=== PATIENT | female | born 1975 | race Caucasian/White ===

== ENCOUNTER 2016-12-27 18:38 | Inpatient (IN) | payer BC ==
--- NOTE | ~2016-12-27 | CN ---
Consultation Report [facility] [address] [place]. [address] NAME: ROXANNE ROE : 73 STATUS : ADM IN PAT#: [id number] AGE: 41 ADM/REG DATE : 12/27/16 MR#: [id number] REPORT SERV DATE: 01/08/17 DICTATED BY: BORIS PEREZ DATE: 01/08/17 REPORT STATUS : Draft TRANSCRIBED BY: MODL DATE: 01/08/17 PALLIATIVE CARE CONSULTATION DATE OF CONSULTATION: Initial consultation date spans 01/06 and 01/07. Initial consultation request was on 01/06 from GI. After discussing the case with Dr. Manley, we elected to defer the consultation until more definitive pathology was available. ALLERGIES: PENICILLIN, DIAZEPAM, TRAMADOL CAUSES PERIORAL NUMBNESS. HISTORY OF PRESENT ILLNESS: Roxanne is a rather complicated 41-year-old 1, para 1 female, who has longstanding issues, possibly as long as a year, involving her right upper quadrant area with nausea "vomiting of green foam," And several ER admissions with similar complaints, for which the workup has been unremarkable. On 12/22, because of increasing symptoms and changes on her chest x-ray, she was admitted to [facility] with a presumptive diagnosis of pneumonitis and right upper quadrant pain. Due to changes in her situation, she was subsequently transferred here, and CAT scan evidence was suggestive of right lung possible pathological process. She underwent fiberoptic bronchoscopy, etc. and subsequently on 01/04, underwent a right upper lobe VATS procedure. The preop diagnosis of right upper lobe ground-glass opacity with mediastinal lymphadenopathy was essentially confirmed. Technically, she did have some atypical cells in her bronchoscopy specimen, which is what resulted in the video procedure. 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 No tumors or granulomas were identified in the lymph nodes or other aspects of the specimen. The patient is markedly relieved, however; she has ongoing pain issues involving her right upper quadrant area. She has been seen by a variety of specialists. PAST MEDICAL HISTORY: Remarkable for a section approximately 24 years ago. She has migraine headaches and diagnosis according to her of juvenile rheumatoid arthritis. She reports that during her , her arthritis symptoms were markedly improved. She takes Fioricet and Imitrex for her migraines. PAST SURGICAL HISTORY: Includes a cholecystectomy roughly a year ago and the aforementioned . SOCIAL HISTORY: She is . Her mother, father, and a 24-year-old son evidently have relocated from [place] possibly, I believe, for financial reasons. She describes being "poor in [place], but middle class here." She is a xjm-lzwm-d-day smoker for at least the last 15-20 years. She had a two-year period of abstinence, but then resumed it during stress. No significant alcohol use. No illicit medications. 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 She is contemplating another . Consultation Report [place] [id number] [facility] [place]. [address] NAME: ROXANNE ROE : 73 STATUS : ADM IN [facility]#: [id number] AGE: 41 ADM/REG DATE : 12/27/16 MR#: [id number] REPORT SERV DATE: 01/08/17 DICTATED BY: BORIS PEREZ DATE: 01/08/17 REPORT STATUS : Draft TRANSCRIBED BY: MIRTHA DATE: 01/08/17 FAMILY HISTORY: Includes DVT and stroke. The mother evidently was diagnosed with celiac disease. On detailed review, the patient tells me that the pain is sometimes positional. She says that when the epidural catheter after her procedure was removed the night following that, she had an excruciating series of pain episodes involving the right side of her body. She was really unable to localize the pain at that time. She says her pain when she is comfortable is normally a 7 and on most days, things are really good at 4/10. She does have chronic pain complaints as documented through her arthritis history. The pain itself has a sticking, burning characteristic to it, although there is certainly an aching component as well. Limited examination shows a nondermatomal area of hyperesthesia in the right lower chest area anterior to the midaxillary line. There is also some tenderness in the right upper quadrant on palpation. There are no obvious peritoneal signs. She has had pleuritic pain components to this, but this appears to be fading. Her current vital signs are physiologic. She is afebrile and nontoxic. DISCUSSION: An extensive discussion was held with the patient regarding her current situation. My initial attempts to explain to her the concept of hyperesthesia and excessive nerve sensitivity unfortunately resulted in her taking the message she was receiving as being dismissed and told that she basically "had pain in her head." I actually returned to the room at the request of the family and re-conducted the conversation, clarifying my impression that this may be some form of neuropathic pain, possibly a combination of her chronic inflammatory condition from her immune status as well as the instrumentations and physical stimuli of both gallbladder surgery previously as well as now thoracic surgery. We are going to be giving her an accelerating dose of Neurontin up to 800 mg t.i.d. If this is not successful, other alternatives may have to be explored. The patient did volunteer and tell me that a number of years ago for reasons unclear, she was on Lyrica which was not terribly effective. I am hopeful since this is a new problem and clearly has a neuritic component that gabapentin will be effective in helping her deal with this. Thank you for asking me to see this patient. BHARGAV/MIRTHA Boris Perez M.D. Consultation Report [address] [address] NAME: ROXANNE ROE : 73 STATUS : ADM IN PAT#: [id number] AGE: 41 ADM/REG DATE : 12/27/16 MR#: [id number] REPORT SERV DATE: 01/08/17 DICTATED BY: BORIS PEREZ DATE: 01/08/17 REPORT STATUS : Draft TRANSCRIBED BY: MIRTHA DATE: 01/08/17 / [id number] CC: Shira Spencer Katrina V.
--- NOTE | ~2016-12-27 | CN ---
Consultation Report [facility] [address] [place]. [address] NAME: MILY ROE : 73 STATUS : ADM IN PAT#: [id number] AGE: 41 ADM/REG DATE : 12/27/16 MR#: [id number] REPORT SERV DATE: 01/04/17 DICTATED BY: RALPH PERRY JR. DATE: 01/03/17 REPORT STATUS : Draft TRANSCRIBED BY: MODL DATE: 01/03/17 CONSULTATION DATE OF CONSULTATION: 01/03/2017 REASON FOR CONSULTATION: Evaluation for lung biopsy and mediastinal node sampling. BRIEF HISTORY: This is a 41-year-old female who initially presented to [facility] complaining of severe right upper quadrant abdominal pain associated with nausea, some vomiting, and occasional fevers and chills. She has been having similar complaints with presentations to the emergency rooms around [facility] including outpatient imaging through [facility] her abdomen and pelvis which have been negative. She has had a previous cholecystectomy. There is some focal hepatic steatosis in the left hepatic lobe. Between October and December of this year, there were some new changes in her lung parenchyma, more specifically a ground-glass infiltrate in the right upper lobe more than the left upper lobe. There was some basal atelectasis. There was also over the 2-month time period, an enlargement in an 11R and the #7 lymph node in the mediastinum. She underwent endobronchial ultrasound as well as bronchoscopy with transbronchial biopsy and lavage demonstrating some atypical cells, we could not rule out carcinoma in situ or well-differentiated adenocarcinoma. Because of this, the patient is convinced she certainly has lung cancer. Mainly her concerns are based on her 30-pack year smoking history and at least two packs per day for 15 years and her family history of lung cancer at premature age. The patient is mainly still complaining of abdominal pain, we just keep her in the hospital requiring her IV narcotics. PAST MEDICAL HISTORY: Significant for migraine headaches, COPD with persistent tobacco abuse. PAST SURGICAL HISTORY: Previous cholecystectomy and . MEDICATIONS: Medication list includes Fioricet, Bentyl, ibuprofen, Aspercreme, Preston, Prilosec, Phenergan, and Flagyl. ALLERGIES: PENICILLIN, VALIUM, AND TRAMADOL. SOCIAL HISTORY: The patient says she smoked two packs per day for 15 years on average. It likely could be longer and it was sometimes between one to two packs during that time. She works at a nursery. FAMILY HISTORY: Significant for DVT and stroke, mom with celiac disease. She said there is lung cancer on one side of her family and ovarian cancer on the other side. REVIEW OF SYSTEMS: Significant with the above-mentioned problems in the history of present illness. All other Consultation Report [place] [address] [place]. [address] NAME: MILY ROE : 73 STATUS : ADM IN PAT#: [id number] AGE: 41 ADM/REG DATE : 12/27/16 MR#: [id number] REPORT SERV DATE: 01/04/17 DICTATED BY: RALPH PERRY JR. DATE: 01/03/17 REPORT STATUS : Draft TRANSCRIBED BY: MIRTHA DATE: 01/03/17 systems are negative. PHYSICAL EXAMINATION: GENERAL: This is a 41-year-old female, sitting up in bed, in no apparent distress. HEAD EYES EARS, NOSE, and THROAT: Negative. Sclera was nonicteric. Pupils round, equal, and reactive to light. NECK: Supple. No lymphadenopathy. CARDIOVASCULAR: Revealed no murmurs or rubs. LUNGS: No rhonchi with good breath sounds bilaterally. ABDOMEN: Soft, nontender with some right upper quadrant tenderness to palpation but no guarding. EXTREMITIES: Showed no significant edema. NEUROLOGIC: Grossly intact. SKIN: Warm and dry. PSYCHIATRIC: Negative. IMPRESSION: This is a 41-year-old female with too much changes in her CT scan, particularly most notable in the right upper lobe. There was also some two regions of mediastinal lymphadenopathy that increased. These were more suggestive of inflammatory rather than malignant changes. Given her certainty in her families that she has lung cancer and that is attributing to her abdominal pain, she wishes to proceed on with further biopsies to definitively rule this out. I did discuss with her in great detail that these are nonpalpable lesions. We could do a sampling of the right upper lobe in the anatomic region where the abnormalities are located. We can more certainly sample this specific lymph nodes in question. This would give us more evidence to likely rule in or out of malignancy. There was no way to absolutely biopsy area of concern within the lung tissue. It was also very clear that this is unlikely related to her abdominal pathology, and I would not expect it to resolve her abdominal pain. She was also well aware if we went on with lung biopsy that it was important to maintain smoking cessation after she returned home. Also important to use abundant caution postoperatively in risk for pneumonia as well as deep venous thrombosis. Preventive measures were explained in great detail with the patient. She is still very insisting of proceeding on with surgery. Given her concerns and only gets completely unrealistic as well as the pathology report was leaving some question that this could be malignant findings in her chest and they wish to proceed as soon as possible. We will try to use tomorrow the right thoracoscopy with right upper lobe biopsy as indicated in the mediastinal node dissection. We will request an epidural catheter for perioperative pain control. AIDA/MIRTHA Ralph Perry Jr., M.D. Consultation Report [address] [address] NAME: MILY ROE : 73 STATUS : ADM IN PAT#: [id number] AGE: 41 ADM/REG DATE : 12/27/16 MR#: [id number] REPORT SERV DATE: 01/04/17 DICTATED BY: RALPH PERRY JR. DATE: 01/03/17 REPORT STATUS : Draft TRANSCRIBED BY: MIRTHA DATE: 01/03/17 / [id number] CC: Shira Cortez KATRINA V.
--- NOTE | ~2016-12-27 | CN ---
Consultation Report [facility] [address] [place]. [address] NAME: MILY ROE : 73 STATUS : ADM IN PAT#: [id number] AGE: 41 ADM/REG DATE : 12/27/16 MR#: [id number] REPORT SERV DATE: 01/07/17 DICTATED BY: ALEX BARKLEY DATE: 01/07/17 REPORT STATUS : Draft TRANSCRIBED BY: MODL DATE: 01/07/17 HOSPITAL CONSULTATION DATE OF CONSULTATION: 01/07/2017 REASON FOR CONSULTATION: Enlarging ovarian cyst with right upper quadrant pain. HISTORY: This is a 41-year-old white female, 1, para 1, admitted approximately three weeks ago for right upper quadrant pain with a diagnosis of desquamative interstitial pneumonia by lung biopsy and bronchoscopy. She was recovering from this when the right upper quadrant pain which had been present prior to diagnosis and procedure became severe. A CT scan was obtained which showed an ovarian cyst which increased to 3 cm. Her menstrual history is significant for irregular cycles with periods that can occur every 2-3 months to three times a month. She has etoxejpu-rr-lerfze dysmenorrhea with heavier periods. She desires . Her last period was 01/03/2017 and the one prior to that was 12/20/2016. Her pain is in the right upper quadrant and increases with movement and deep breathing. It has been severe to the point of not being able to get relief from pain medicines. Pain medicines seem to decrease her pain, but did not resolve the cause of the pain. She is apparently doing well from the chest tube and bronchoscopy and lung biopsy on the right without increased fluid or inflammatory process. She is also on steroids for the interstitial pneumonia and normally, her bowel function is daily but she has not had a bowel movement since her procedure which was three days ago. PAST SURGICAL HISTORY: Four arthroscopy of the knee; rotator cuff, left; laparoscopy 15 years ago at [place] for endometriosis, pelvic pain which she states was improved. No history of control. She has either juvenile rheumatoid arthritis or arthritis for which she has taken several medications in the past, but is not currently being treated. She had an episode of kidney stones as a teenager. She also had an emergency 24 years ago for breech. SOCIAL HISTORY: She smokes approximately a pack a day. ALLERGIES: SHE IS ALLERGIC TO PENICILLIN, TRAMADOL, AND VALIUM. MEDICATIONS: Her admission sheet list multiple medications, however, she states to me she only takes Motrin. IMPRESSION: 1. Right upper quadrant pain before, but becoming severe following right lung biopsy; history of right upper quadrant pain since cholecystectomy a year ago. 2. Ovarian cyst, approximately 3-4 cm size within normal limits. She has a history of anovulatory cycles for which she has received some metformin in the past, but that was discontinued. A [employer] source of her right upper quadrant pain is unlikely. She does however need assistance with regulating menstrual cycles, dysmenorrhea, and pelvic pain Consultation Report [facility] [address] [place]. [address] NAME: MILY ROE : 73 STATUS : ADM IN [facility]#: [id number] AGE: 41 ADM/REG DATE : 12/27/16 MR#: [id number] REPORT SERV DATE: 01/07/17 DICTATED BY: ALEX BARKLEY DATE: 01/07/17 REPORT STATUS : Draft TRANSCRIBED BY: MIRTHA DATE: 01/07/17 and for this, she was instructed to follow up in the office after discharge. I have also given her a prescription for progesterone 200 mg at bedtime for four days, 15 through 28 of each cycle; folic acid 1 mg a day as long as she is not preventing ; and naproxen 550 mg q.8 hours p.r.n. dysmenorrhea. RONAK/MIRTHA Alex Barkley M.D. / [id number] CC: Shira Spencer Katrina V.
--- NOTE | ~2016-12-27 | EGD ---
EGD REPORT [facility] [address] [id number] NAME: ROXANNE ROE : 73 STATUS : ADM IN PAT#: [id number] AGE: 41 ADM/REG DATE : 12/27/16 MR#: [id number] REPORT SERV DATE: 12/28/16 DICTATED BY: IVETTE CHI DATE: 12/28/16 REPORT STATUS : Draft TRANSCRIBED BY: IATARH [facility] DATE: 12/28/16 Pulmonology Patient Name: Roxanne Roe Gutwanda Procedure Date: 12/28/2016 9:36 AM Date of : 1975 Attending MD: TONY CHI MD Procedure Date No Time: 12/28/2016 Procedure: EBUS Indications: RUL infiltrate (GGO) and mediastinal adenopathy Providers: TONY CHI MD Referring MD: ROME KENT MD Medicines: Lidocaine 2% 20 mL Complications: No immediate complications Procedure: Pre-Anesthesia Assessment: - A History and Physical has been performed. Patient meds and allergies have been reviewed. The risks and benefits of the procedure and the sedation options and risks were discussed with the patient. All questions were answered and informed consent was obtained. Patient identification and proposed procedure were verified prior to the procedure by the physician and the nurse in the pre-procedure area in the procedure room. Mental Status Examination: alert and oriented. Respiratory Examination: poor air movement. CV Examination: normal and RRR, no murmurs, no S3 or S4. ASA Grade Assessment: III - A patient with severe systemic disease. After reviewing the risks and benefits, the patient was deemed in satisfactory condition to undergo the procedure. The anesthesia plan was to use general anesthesia. Immediately prior to administration of medications, the patient was re-assessed for adequacy to receive sedatives. The heart rate, respiratory rate, oxygen saturations, blood pressure, adequacy of pulmonary ventilation, and response to care were monitored throughout the procedure. The physical status of the patient was re-assessed after the procedure. the Bronchoscope was introduced through the mouth, via the endotracheal tube (the patient was intubated for the procedure) and advanced to the tracheobronchial tree. the BF [id number] was introduced through the mouth, via the endotracheal tube (the patient was intubated for the procedure) and advanced to the tracheobronchial tree. The procedure was accomplished without difficulty. The patient tolerated the procedure well. Findings: EGD REPORT [address] [address] NAME: ROXANNE ROE : 73 STATUS : ADM IN [facility]#: [id number] AGE: 41 ADM/REG DATE : 12/27/16 MR#: [id number] REPORT SERV DATE: 12/28/16 DICTATED BY: IVETTE CHI DATE: 12/28/16 REPORT STATUS : Draft TRANSCRIBED BY: [employer] DATE: 12/28/16 The endotracheal tube is in good position. The visualized portion of the trachea is of normal caliber. The andreina is sharp. The tracheobronchial tree was examined to at least the first subsegmental level. Bronchial mucosa and anatomy are normal; there are no endobronchial lesions, and no secretions. EBUS TBNA of lymph node level 11L x 4 passes for cytology EBUS TBNA of lymph node level 7 x 4 passes for cytology EBUS TBNA of lymph node level 11R x 4 passes for cytology Bronchoalveolar lavage was performed in the right upper lobe of the lung and sent for cell count, cytology, bacterial culture, viral smears \T\ culture, and fungal and AFB analysis. 120 mL of fluid were instilled. The return was cellular. There were no mucoid plugs in the return fluid Fluoroscopically guided transbronchial brushings were obtained in the right upper lobe of the lung and sent for routine cytology. One sample was obtained. Transbronchial biopsies were performed in the right upper lobe of the lung using forceps and sent for histopathology examination. The procedure was guided by fluoroscopy. Four biopsy passes were performed. Three biopsy samples were obtained. Impression: Rapid On-Site Evaluation (YAMILETH): Preliminary cytology is suggestive of a benign lesion (final results are pending). Recommendation: - Chest X-ray post-procedure. - Patient is planned to follow up at [facility]. - Follow up with Dr. Rome Kent at [facility]. Attending Participation: I personally performed the entire procedure. TONY CHI MD 12/28/2016 10:24 AM This report has been signed electronically. Number of Addenda: 0 Note Initiated On: 12/28/2016 9:36 AM [address] [id number]
--- NOTE | ~2016-12-27 | IDS ---
Interim Discharge Summary [facility] [address] [place]. [address] NAME: MILY ROE : 73 STATUS : ADM IN PAT#: [id number] AGE: 41 ADM/REG DATE : 12/27/16 MR#: [id number] REPORT SERV DATE: 01/04/17 DICTATED BY: DATE: REPORT STATUS : Draft TRANSCRIBED BY: MODL DATE: 01/04/17 ADMISSION DATE: 12/27/2016 DISCHARGE DATE: The patient was admitted to the [facility]. The patient was actually transferred from [facility] where she was admitted on 12/22/2016. [facility] Prior hospitalist was Dr. Fede Madrid. DIAGNOSES: 1. Right upper quadrant pain, reason for admission. 2. Nausea, vomiting, and diarrhea, resolved. 3. Bilateral pneumonia, status post seven days of Levaquin. 4. Clinically, chronic obstructive pulmonary disease - with acute exacerbation this admission, due to bilateral pneumonia, resolved. Now on maintenance inhalers. 5. Hypoxemic respiratory failure, due to pneumonia and chronic obstructive pulmonary disease exacerbation, resolved. Presently on room air. 6. Abnormal CT of the chest, with mediastinal lymphadenopathy, status post EBUS and bronch on 12/28/2016, with atypical cells on pathology, for lung biopsy by Dr. Perry today. 7. Vaginal candidiasis. 8. Rheumatoid arthritis. 9. History of tobacco abuse - two-packs per day for 15 years. Intends to stop smoking. 10.History of migraines. 11.Situational anxiety. 12.Steroid induced insomnia, improved. IMAGING AND DIAGNOSTICS: Includes imaging from the ER visits preceding admission to [place]: 1. Acute abdominal series on 12/19/2016, showed no acute cardiopulmonary disease. No evidence of obstruction, pneumoperitoneum, or abnormal abdominal calcification, status post cholecystectomy. 2. Portable chest x-ray on 12/22/2016, for fever shows no acute cardiopulmonary process, low lung volumes, status post cholecystectomy. 3. CT of the abdomen and pelvis with contrast on 12/22/2016, no acute abdominal or pelvic pathology. No imaging explanation for right upper quadrant pain, status post cholecystectomy. Minor subsegmental atelectasis in both posterior lung bases. Small indeterminate 5 mm noncalcified pulmonary nodules in the left lower lobe, benign appearance, recommend followup low-dose contrast CT in one year. 4. Chest CT with contrast on 12/24/2016, for fevers and cough shows small cluster of nodular infiltrates at the right lung apex, appear new from recent prior motion degraded CT of the chest dated 11/21/2016. May represent early bronchiolitis or bronchopneumonia. Small patchy areas of peripheral interstitial infiltrates bilaterally in the anterior upper lobes and along the inferior right upper lobe at the level of the minor fissure. Appear new from CT of the chest 11/21/2016. Upper lobe distribution of peripheral interstitial infiltrates raises possibility of early hypersensitivity pneumonitis. Right hilar and subcarinal adenopathy may represent Interim Discharge Summary [address] [place]. [address] NAME: MILY ROE : 73 STATUS : ADM IN [facility]#: [id number] AGE: 41 ADM/REG DATE : 12/27/16 MR#: [id number] REPORT SERV DATE: 01/04/17 DICTATED BY: DATE: REPORT STATUS : Draft TRANSCRIBED BY: MODL DATE: 01/04/17 reactive adenopathy. Although, needs close followup to ensure resolution after treatment of suspected underlying infectious disease process. Small indeterminate pulmonary nodules of the right upper lobe and both lower lobes, largest measuring 3 mm. Benign pattern. Recommendation for one year followup low-dose noncontrast CT. Report was reviewed with Dr. Stanton, who verbally stated that there was no evidence of pulmonary embolism either. 5. Portable chest x-ray on 12/28/2016, for shortness of breath shows interval development of diffuse symmetrical perihilar infiltrates consistent with interstitial edema. 6. Portable chest x-ray on 12/28/2016, shows no pneumothorax. Infiltrates worse consistent with recent bronchoscopy. 7. Hepatic echo on 12/29/2016, for right upper quadrant abdominal pain, shows negative hepatic ultrasound, status post cholecystectomy. No biliary dilatation. 8. EBUS on 12/28/[address] Kike Ndiaye, showing rare atypical cells, nondiagnostic, from several lymph nodes. Brushings for cytology of the right upper lobe of the lungs show atypical cells, suspicious for disordered architecture and enlarged nuclei. BAL for cytology from the right upper lobe shows rare atypical cells. All samples were nondiagnostic, but there was concern based on right upper lobe brushings in part D for low-grade/lepidic type adenocarcinoma. That said, there are overlapping reactive inflammatory changes and pathology was unable to render the diagnosis with certainty. 9. EGD on 12/23/[address] Horne showing erosive gastritis. Flattened mucosa in the duodenum. Subsequent pathology negative for celiac disease. PERTINENT LABORATORY DATA: White blood cell count has been normal through the hospitalization at [place]. Hemoglobin values have ranged from 10 to 12. INR is 1.2. Electrolytes have been normal with the exception of occasionally low potassium, and occasional mild elevations in glucose when she was on steroids. AFB culture was negative. Urinalysis was normal. BNP was 200. Multiple sets of liver enzymes, normal. Lipase 168. Bronchoscopy culture showed no growth of bacteria. Review of labs from [facility]; pH was 7.46, pCO2 32, PO2 40, oxygen saturation 81% on room air. C-reactive protein 79.1, lactate 1.2. Urine HCG negative. JERALD positive at 1 to 80 homogeneous pattern. Sedimentation rate 27. Flu swab negative. H pylori antibody negative. BRIEF HISTORY: For full details please see the history of present illness dictated by Malu Perez on 12/23/2016. This is a 41-year-old, white female, who was experiencing right upper quadrant pain for several weeks prior to admission, and had several ER presentations for right upper quadrant pain, and also been seen her primary care provider for outpatient work up. Also, during the October and November timeframe, had been diagnosed with pneumonia, and treated with Levaquin. When she came to the Emergency Department on 12/22/2016, she was admitted to the Hospitalist Service with right upper quadrant pain, temperature of 101.8, tachycardia, hypoxemia with blood gas showing oxygen saturations of 81% on room air. Procalcitonin was negative. Lactate was normal, flu swab was negative. CBC and comprehensive metabolic panel were normal. CT of the abdomen and pelvis, and chest x-ray were normal. The patient was admitted for recurrent right upper quadrant abdominal pain with nausea, vomiting, and diarrhea. Interim Discharge Summary [address] [address] NAME: MILY ROE : 73 STATUS : ADM IN [facility]#: [id number] AGE: 41 ADM/REG DATE : 12/27/16 MR#: [id number] REPORT SERV DATE: 01/04/17 DICTATED BY: DATE: REPORT STATUS : Draft TRANSCRIBED BY: MODL DATE: 01/04/[address] scans and most recent CT scan were nonrevealing for an etiology for her right upper quadrant pain, and because she was taking nonsteroidal anti-inflammatories on a regular basis, Gastroenterology consultation was obtained, and the patient underwent an EGD on 12/23/2016, demonstrating only nonspecific gastritis. The patient was placed on Protonix. She did not have any additional nausea, vomiting, or diarrhea in the hospital and therefore stool studies could not be obtained. Dr. Rome Kent, also saw the patient, while she was at [facility] for concern of pneumonitis on subsequent chest x-rays during the hospitalization. At that point, the patient was empirically on Levaquin and Flagyl, supplemental oxygen, and a CT of the chest with contrast demonstrated a small cluster of nodular infiltrates at the right lung apex, a small patchy area of peripheral interstitial infiltrates in bilateral anterior upper lobes, new compared to a previous chest CT from 11/21/2016. Also, right hilar and subcarinal adenopathy was noted with indeterminate small pulmonary nodules in the right upper lobe and both lower lobes. Recommendation was to obtain flexible bronchoscopy with endobronchial ultrasound by Dr. Ndiaye, and the patient was transferred to the [facility] on Wednesday the 12/27/2016. The patient underwent EBUS and bronchoscopy on 12/28/2016. I assumed care of the patient on 12/29/2016, and she was experiencing excruciating right upper quadrant pain. She had been transferred from [place] on a VOCATIONAL HORTICULTURE INSTRUCTOR which had been discontinued on the day prior, because no cause for this severe right upper quadrant pain had been determined. The VOCATIONAL HORTICULTURE INSTRUCTOR had to be re- initiated by the limnology teacher on 12/28/2016 over night. During the initial days of the week that I cared for the patient, we managed her bilateral pneumonia with Levaquin, IV Solu- Medrol, nebulized steroids, and nebulized bronchodilators. The patient has completed seven days of Levaquin as of today and this medication has been discontinued. She has also been tapered off her IV Solu-Medrol, and is on maintenance inhalers by Pulmonology. They clinically suspect COPD given the history of smoking, and more formal diagnosis can be made as an outpatient. The patient was able to be weaned off her oxygen to maintain oxygen saturations between 93% and 96% on room air, with exertion. The patient's right upper quadrant pain has remained an issue this week. I was able to wean her off her VOCATIONAL HORTICULTURE INSTRUCTOR on Wednesday01/01/2017, to a regimen of scheduled Percocet and IV Dilaudid which she is using every three to four hours. The cause of her right upper quadrant pain remains unknown. We were working towards discharge with reasonable pain control, to follow up at a [facility] regarding possible sphincter of Oddi dysfunction, or to follow up with DEVELOPING MACHINE TENDER for consideration of exploratory laparoscopy. However, on Wednesday01/01/2017, the patient's pathology from the EBUS was resulted demonstrating atypical cells in both lymph nodes and brushings from the right upper lobe. Pathology was unable to definitively rule out malignancy. Dr. Ndiaye showed the pathology results with the patient on 01/01/2017, and family requested that she remain inpatient to be evaluated by Cardiothoracic Surgery. Dr. Perry saw the patient on 01/03/2017, with plans for VATS with lung biopsies, possible lymph node biopsies, and postoperative epidural for pain control. That procedure is happening this afternoon, and the patient will be transferred to [address] [place] [address] Afterward, to complete her recovery, and Interim Discharge Summary [address] [address] NAME: MILY ROE : 73 STATUS : ADM IN [facility]#: [id number] AGE: 41 ADM/REG DATE : 12/27/16 MR#: [id number] REPORT SERV DATE: 01/04/17 DICTATED BY: DATE: REPORT STATUS : Draft TRANSCRIBED BY: MODL DATE: 01/04/17 for review of pathology from the VATS. DISPOSITION: The patient remains hospitalized to be followed by a colleague starting on 01/05/2017. Disposition will be per results of pathology. If pathology is negative, would again recommend pain management, outpatient evaluations by GI and DEVELOPING MACHINE TENDER for elusive source of right upper quadrant pain. At this point, she has been treated sufficiently for pneumonia and acute exacerbation of COPD. JASWINDER/MIRTHA Ramesh Baez M.D. / [id number] CC: Shira Cortez KATRINA V.
--- NOTE | ~2016-12-27 | DS ---
Discharge Summary [place] [address] [facility] [place]. [address] NAME: MILY ROE : 73 STATUS : DIS IN PAT#: [id number] AGE: 41 ADM/REG DATE : 12/27/16 MR#: [id number] REPORT SERV DATE: 01/09/17 DICTATED BY: JULIANA FRANKLIN DATE: 01/09/17 REPORT STATUS : Draft TRANSCRIBED BY: MIRTHA DATE: 01/09/17 ADMISSION DATE: 12/27/2016 DISCHARGE DATE: 01/09/2017 DIAGNOSES: 1. Desquamative interstitial pneumonia. 2. Right upper quadrant pain. 3. Systemic inflammatory response syndrome, resolved. 4. Gastritis. 5. Acute hypoxemic respiratory failure, resolved. 6. History of tobacco abuse. FOLLOWUP: the patient should follow up with her primary care physician Dr. Julia Gilliland in one to two weeks, and at that time the patient should be referred for an outpatient DEXA scan. Also, the patient should follow up with Dr. Tj Lopez tapper hand in three weeks for DIP. Also, the patient should follow up with web application tester Dr. Dallas Crowe, in two to three weeks for right ovarian cyst. DISCHARGE MEDICATIONS: Ascorbic acid 500 mg p.o. daily, Questran 4 mg p.o. at bedtime, Colace 100 mg p.o. b.i.d., Neurontin 600 mg p.o. t.i.d., Prilosec 20 mg p.o. b.i.d., Bactrim DS one tab p.o. daily Wednesday, Wednesday, and Wednesday for [address] Lopez, prednisone taper, Fioricet p.r.n., Bentyl 10 mg p.o. t.i.d. p.r.n., ibuprofen 400 to 600 mg p.o. q.6 hours p.r.n., promethazine 25 mg p.o. q.4 hours p.r.n., Percocet 5/325 one to two tabs p.o. q.4 to 6 hours p.r.n. written per the cardiothoracic surgeons, albuterol HFA two puffs inhaled q.4 hours p.r.n., Incruse Ellipta one puff inhaled daily, melatonin 6 mg p.o. at bedtime p.r.n., folic acid 1 mg p.o. daily, progesterone at bedtime per web application tester. CONSULTANTS: 1. Pulmonary, Dr. Tj Lopez. 2. GI, Dr. Horne and Dr. Stahl. 3. Cardiothoracic Surgery, Dr. Perry. 4. Gynecology, Dr. Dallas Crowe. 5. Palliative care for pain management, Dr. Christian Perez. PROCEDURES: Right thoracoscopy, with right upper lobe wedge excision, and mediastinal node sampling, and intercostal nerve block by Dr. Perry on 01/04/2017. HOSPITALISTS: 1. Cris Perez M.D. 2. Dr. Juliana Baez. 3. Dr. Franklin. HOSPITAL COURSE: This is a 41-year-old female, with a past medical history of chronic pain management, migraine headaches, presented to [facility] with right upper quadrant pain. According to the patient, she had an outpatient workup for her symptoms, and recently had a CT of the abdomen and pelvis as an outpatient with contrast that was overall Discharge Summary [address] [address] NAME: MILY ROE : 73 STATUS : DIS IN PAT#: [id number] AGE: 41 ADM/REG DATE : 12/27/16 MR#: [id number] REPORT SERV DATE: 01/09/17 DICTATED BY: JULIANA FRANKLIN DATE: 01/09/17 REPORT STATUS : Draft TRANSCRIBED BY: MODAlejandro DATE: 01/09/17 negative. There was no signs of appendicitis or any acute findings. Therefore, she presented to [facility] ER for ongoing symptoms. The patient was admitted to the Hospitalist Service with a GI consultation, initially seen by Dr. Harpreet Horne, and also seen by Pulmonary for signs of pneumonia versus pneumonitis. The patient was transferred to [facility] from [place] to be seen by cardiothoracic surgeons for interstitial infiltrates and nodular infiltrate. The patient had a flex bronchoscopy by Dr. Ndiaye prior to transfer that was nondiagnostic. Therefore, the patient was referred to Cardiothoracic Surgery. She was also seen by GI and had an EGD with findings of erosive gastropathy. The patient continued to have severe right upper quadrant pain of unknown etiology. She was continued on PPI, started on Questran by GI. She had multiple abdominal scans that were nondiagnostic, ruled out appendicitis. The patient did require per recommendation a right thoracoscopy with a right upper lobe wedge excision for suspected and possible underlying malignancy, due to the patient's a nodular infiltrates, with known ongoing tobacco abuse. The patient was educated on tobacco abuse cessation. She was continued on antibiotics, her infiltrates resolved, and eventually, her path report had findings of DIP Desquamative and interstitial pneumonia, and no signs of malignancy. The patient was educated on importance of tobacco abuse cessation. She was continued on Bactrim by tapper hand, Dr. Lopez. As for the patient's right upper quadrant pain, she required quite a bit of pain medications for control, and the patient was initiated on a steroid by Dr. Lopez for her DIP, and the patient's also right upper quadrant pain improved with the steroid management, most likely the right upper quadrant pain was secondary to musculoskeletal. Also, the patient was seen by web application tester for an acutely enlarged right ovarian cyst with signs of debris versus hemorrhage. The patient was ruled out for hemorrhagic ovarian cyst, however, was recommended to follow up with gynecology as an outpatient and prescriptions were written by the web application tester for the patient to follow up. At the time of discharge, the patient was much improved,but we will continue management with pain medicines. The patient and also educated on importance of safety of pain medicines and to have to manage pain medicines at home. The patient was feeling better and encouraged, and ready to be discharged to home, and to follow up with specialists as an outpatient. Please refer to interim summary from Dr. Ramesh Baez for further details, and the summary of H and P from Dr. Perez. This discharge required greater than 35 minutes. KELLIE/MODL Juliana Franklin M.D. / [id number] CC: Shira Spencer KATRINA V. Nathan Mull IV, M.D.
--- NOTE | ~2016-12-27 | OP ---
Record Of Operation [facility] [address] [place]. [address] NAME: MILY ROE : 73 STATUS : ADM IN PAT#: [id number] AGE: 41 ADM/REG DATE : 12/27/16 MR#: [id number] REPORT SERV DATE: 01/04/17 DICTATED BY: RALPH PERRY JR. DATE: 01/04/17 REPORT STATUS : Draft TRANSCRIBED BY: MODL DATE: 01/04/17 DATE OF PROCEDURE: 01/04/2017 PREOPERATIVE DIAGNOSES: Right upper lobe ground-glass opacity with mediastinal lymphadenopathy, rule out malignancy, status post previous endobronchial ultrasound and transbronchial biopsy with suspicious atypical cells, right upper quadrant abdominal pain of unknown etiology, chronic obstructive pulmonary disease with persistent tobacco abuse, migraine headaches, previous cholecystectomy, section, and chronic pain medication usage. POSTOPERATIVE DIAGNOSES: Right upper lobe ground-glass opacity with mediastinal lymphadenopathy, rule out malignancy, status post previous endobronchial ultrasound and transbronchial biopsy with suspicious atypical cells, right upper quadrant abdominal pain of unknown etiology, chronic obstructive pulmonary disease with persistent tobacco abuse, migraine headaches, previous cholecystectomy, section, and chronic pain medication usage. Pathology pending. NAME OF OPERATION: Bronchoscopy, right thoracoscopy with right upper lobe wedge excision for diagnosis, mediastinal node sampling, omari stations 10R and 7, and intercostal nerve block. SURGEON: Ralph Perry M.D. RESIDENT SURGEON: Campbell Camejo M.D BARREL LATHE OPERATOR OUTSIDE: Shankar Burt. ANESTHESIA: General endotracheal. FINDINGS: The patient was noted to have no palpable abnormalities within the lung tissue as expected. We wedged out what we thought anatomically was the area in question. The lymph nodes were more definitive where she did have an enlarged subcarinal lymph node which we removed quite a bit of that node along with the right mainstem or 10R location. There were no endobronchial lesions or abnormalities seen. Final pathology and cultures are pending. DETAILS OF OPERATION: After adequate anesthesia, the patient was intubated. Bronchoscopy was performed noting no endobronchial lesions. A left-sided double-lumen endotracheal tube was then placed. The patient then positioned in the left lateral decubitus position. The right chest was prepped and draped routine sterile fashion. A small incision was made overlying the lower intercostal space. A separate anterior trocar incision was also made. Through these two incision sites, above findings noted. The right upper lobe area in question was identified and wedged out using multiple firings of JEANNE stapler with tissue reinforcements. The generous wedge incision involving the lateral portion. The fissure was excised. Gross inspection of this lung tissue revealed no definitive abnormalities. She said nothing could be palpated. The nodes were abnormal in the subcarinal and paratracheal and right mainstem bronchial region. These were then biopsied with abundant tissue removed. The rest of the chest explored noting no abnormalities. An intercostal nerve block was Record Of Operation [address] [address] NAME: MILY ROE : 73 STATUS : ADM IN PAT#: [id number] AGE: 41 ADM/REG DATE : 12/27/16 MR#: [id number] REPORT SERV DATE: 01/04/17 DICTATED BY: RALPH PERRY JR. DATE: 01/04/17 REPORT STATUS : Draft TRANSCRIBED BY: MIRTHA DATE: 01/04/17 performed. A 28-Citizen [place] chest tube was placed. The lung was reinflated. The trocar sites were closed with running Vicryl sutures. The skin was closed with running monofilament suture. A Dermabond dressing was applied. The procedure was terminated this point. The patient tolerated the procedure well and returned back to recovery room in stable condition. AIDA/MIRTHA Ralph Perry Jr., M.D. / [id number] CC: Shira Cortez KATRINA V. Krishnendu Bhadra, M.D.
[~2016-12-27 18:38] MED LIST: ASPERCREME TOP; BENTYL10 PO; FIORICET 50-301 EACH PO; FLAG500TAB PO; MOTRIN IB200 MG PO; NORCO1 TA2 PO; PR25 PO; PRILO PO
[2016-12-28 06:36] LABS: BASOPHILS 0.5 %; BASOPHILS ABSOLUTE 0.04 10/3/uL (0.0-0.16); EOSINOPHILS 0.4 %; EOSINOPHILS ABSOLUTE 0.03 10/3/uL (0.0-0.53); HEMATOCRIT 32.3 % (36.0-48.0); HEMOGLOBIN 11.2 g/dL (12.0-16.0); IMMATURE GRANULOCYTES 0.5 %; IMMATURE GRANULOCYTES ABSOLUTE 0.04 10/3/uL (0.0-0.11); LYMPHOCYTES 20.2 %; LYMPHOCYTES ABSOLUTE 1.61 10/3/uL (0.67-4.30); MEAN CORPUS HGB CONC 34.7 g/dL (32.0-36.0); MEAN CORPUSCULAR HEMOGLOB 30.9 pg (26.0-34.0); MEAN PLATELET VOLUME 9.2 fL (9.2-13.0); MONOCYTES 7.7 %; MONOCYTES ABSOLUTE 0.61 10/3/uL (0.21-1.20); NEUTROPHILS 70.7 %; NEUTROPHILS ABSOLUTE 5.64 10/3/uL (2.02-8.40); PLATELET COUNT 166 10/3/uL (150-400); RBC DISTRIBUTION WIDTH 12.7 % (12.0-16.0); RED CELL COUNT 3.63 10/6/uL (4.0-5.6)
[2016-12-28 06:39] LABS: INTERNATIONAL NORMAL RATI 1.2 UNITS (-); PROTIME (NOT ORD) 14.7 SEC (12.0-14.5)
[2016-12-28 06:41] LABS: MANUAL DIFF NO %
[2016-12-28 06:46] LABS: BUN (BLOOD UREA NITROGEN) 7 MG/DL (6-23); CALCIUM, SERUM 8.5 MG/DL (8.5-10.4); CHLORIDE, SERUM 105 MMOL/L (96-112); CO2 (CARBON DIOXIDE) 26 MMOL/L (24-34); CREATININE 0.65 MG/DL (0.55-1.02); GFR AFRICAN AMERICAN 127 ML/MIN (>=60); GFR NON AFRICAN AMERICAN 110 ML/MIN (>=60); POTASSIUM, SERUM 3.2 MMOL/L (3.5-5.3); SODIUM, SERUM 140 MMOL/L (135-148)
[2016-12-28 06:47] LABS: GLUCOSE, SERUM 110 MG/DL (60-99)
[2016-12-28 13:34] LABS: BD FL SOURCE (NOT ORD) RUL; BF TOTAL CELL CT (NOT ORD 559 /MM3; BODY FLUID RBC (NOT ORD) 21000 /MM3
[2016-12-28 13:40] LABS: BD FL LYMPH (NOT ORD) 27 %; BF BASO (NOT OF) 0 %; BF LARGE MONONUCLEAR 41 %; BODY FLUID EOS (NOT ORD) 0 %; BODY FLUID SEG (NOT ORD) 32 %
[2016-12-29 07:30] LABS: BUN (BLOOD UREA NITROGEN) 9 MG/DL (6-23); CALCIUM, SERUM 8.7 MG/DL (8.5-10.4); CHLORIDE, SERUM 105 MMOL/L (96-112); CO2 (CARBON DIOXIDE) 27 MMOL/L (24-34); CREATININE 0.66 MG/DL (0.55-1.02); GFR AFRICAN AMERICAN 126 ML/MIN (>=60); GFR NON AFRICAN AMERICAN 109 ML/MIN (>=60); GLUCOSE, SERUM 115 MG/DL (60-99); POTASSIUM, SERUM 3.7 MMOL/L (3.5-5.3); SODIUM, SERUM 141 MMOL/L (135-148)
[2016-12-29 16:48] LABS: ASCORBIC ACID (UR NOT ORDER) NEG (NEG); BILIRUBIN, URINE NEGATIVE (NEG); KETONE, URINE NEGATIVE (NEG); LEUKOCYTE ESTERASE(NOT OR NEG (NEG); WBC (NOT ORDERED) (RFLEX) 1 (0-5)
[2016-12-31 06:29] LABS: ALBUMIN 2.7 G/DL (3.5-5.0); TOTAL BILIRUBIN 0.2 MG/DL (0-1.2); TOTAL PROTEIN 6.8 G/DL (6.0-8.5)
[2016-12-31 06:30] LABS: DIRECT BILIRUBIN 0.1 MG/DL (0.0-0.4); INDIRECT BILIRUBIN(NOT ORDER) 0.1 MG/DL (0.1-0.9)
[2017-01-02 07:05] LABS: BASOPHILS 0.3 %; BASOPHILS ABSOLUTE 0.03 10/3/uL (0.0-0.16); EOSINOPHILS 0.5 %; EOSINOPHILS ABSOLUTE 0.04 10/3/uL (0.0-0.53); HEMATOCRIT 33.9 % (36.0-48.0); HEMOGLOBIN 11.6 g/dL (12.0-16.0); IMMATURE GRANULOCYTES 4.9 %; IMMATURE GRANULOCYTES ABSOLUTE 0.43 10/3/uL (0.0-0.11); LYMPHOCYTES 27.5 %; LYMPHOCYTES ABSOLUTE 2.43 10/3/uL (0.67-4.30); MANUAL DIFF NO %; MEAN CORPUS HGB CONC 34.2 g/dL (32.0-36.0); MEAN CORPUSCULAR HEMOGLOB 30.7 pg (26.0-34.0); MEAN CORPUSCULAR VOLUME 89.7 fL (80-100); MEAN PLATELET VOLUME 8.8 fL (9.2-13.0); MONOCYTES 7.1 %; MONOCYTES ABSOLUTE 0.63 10/3/uL (0.21-1.20); NEUTROPHILS 59.7 %; NEUTROPHILS ABSOLUTE 5.27 10/3/uL (2.02-8.40); PLATELET COUNT 363 10/3/uL (150-400); RBC DISTRIBUTION WIDTH 12.9 % (12.0-16.0); RED CELL COUNT 3.78 10/6/uL (4.0-5.6); WHITE BLOOD CELLS 8.8 10/3/uL (4.5-10.5)
[2017-01-02 07:15] LABS: A/G RATIO 0.7 (0.7-1.9); ALBUMIN 2.7 G/DL (3.5-5.0); ALKALINE PHOSPHATASE 68 U/L (45-117); BUN (BLOOD UREA NITROGEN) 19 MG/DL (6-23); CALCIUM, SERUM 8.6 MG/DL (8.5-10.4); CHLORIDE, SERUM 103 MMOL/L (96-112); CO2 (CARBON DIOXIDE) 29 MMOL/L (24-34); CREATININE 0.99 MG/DL (0.55-1.02); GFR AFRICAN AMERICAN 81 ML/MIN (>=60); GFR NON AFRICAN AMERICAN 70 ML/MIN (>=60); GLOBULIN 3.7 G/DL (2.5-4.1); GLUCOSE, SERUM 91 MG/DL (60-99); POTASSIUM, SERUM 3.6 MMOL/L (3.5-5.3); SGOT(AST) 15 U/L (5-40); SGPT(ALT) 34 U/L (5-65); SODIUM, SERUM 141 MMOL/L (135-148); TOTAL BILIRUBIN 0.2 MG/DL (0-1.2); TOTAL PROTEIN 6.4 G/DL (6.0-8.5)
[2017-01-02 12:09] LABS: SED RATE 27 MM/HR (0-20)
[2017-01-02 14:10] LABS: HEMATOCRIT 36.7 % (36.0-48.0); HEMOGLOBIN 12.5 g/dL (12.0-16.0)
[2017-01-03 00:23] LABS: HEMATOCRIT 35.9 % (36.0-48.0); HEMOGLOBIN 12.1 g/dL (12.0-16.0)
[2017-01-03 06:47] LABS: HEMATOCRIT 34.8 % (36.0-48.0); HEMOGLOBIN 11.9 g/dL (12.0-16.0)
[2017-01-04 19:39] LABS: BASOPHILS 0.1 %; BASOPHILS ABSOLUTE 0.02 10/3/uL (0.0-0.16); EOSINOPHILS 0.6 %; EOSINOPHILS ABSOLUTE 0.08 10/3/uL (0.0-0.53); HEMATOCRIT 35.4 % (36.0-48.0); HEMOGLOBIN 12.3 g/dL (12.0-16.0); IMMATURE GRANULOCYTES 2.5 %; IMMATURE GRANULOCYTES ABSOLUTE 0.34 10/3/uL (0.0-0.11); LYMPHOCYTES 9.3 %; LYMPHOCYTES ABSOLUTE 1.26 10/3/uL (0.67-4.30); MANUAL DIFF NO %; MEAN CORPUS HGB CONC 34.7 g/dL (32.0-36.0); MEAN CORPUSCULAR HEMOGLOB 31.1 pg (26.0-34.0); MEAN CORPUSCULAR VOLUME 89.6 fL (80-100); MEAN PLATELET VOLUME 8.3 fL (9.2-13.0); MONOCYTES 3.3 %; MONOCYTES ABSOLUTE 0.45 10/3/uL (0.21-1.20); NEUTROPHILS 84.2 %; NEUTROPHILS ABSOLUTE 11.41 10/3/uL (2.02-8.40); PLATELET COUNT 332 10/3/uL (150-400); RED CELL COUNT 3.95 10/6/uL (4.0-5.6); WHITE BLOOD CELLS 13.6 10/3/uL (4.5-10.5)
[2017-01-04 19:50] LABS: CALCIUM, SERUM 8.4 MG/DL (8.5-10.4); CHLORIDE, SERUM 100 MMOL/L (96-112); CO2 (CARBON DIOXIDE) 28 MMOL/L (24-34); CREATININE 0.92 MG/DL (0.55-1.02); GFR AFRICAN AMERICAN 89 ML/MIN (>=60); GFR NON AFRICAN AMERICAN 77 ML/MIN (>=60); SODIUM, SERUM 138 MMOL/L (135-148)
[2017-01-04 19:51] LABS: BUN (BLOOD UREA NITROGEN) 15 MG/DL (6-23); GLUCOSE, SERUM 125 MG/DL (60-99)
[2017-01-05 06:10] LABS: BASOPHILS 0.1 %; BASOPHILS ABSOLUTE 0.01 10/3/uL (0.0-0.16); EOSINOPHILS 0 %; HEMATOCRIT 36.2 % (36.0-48.0); HEMOGLOBIN 12.2 g/dL (12.0-16.0); IMMATURE GRANULOCYTES 1.4 %; IMMATURE GRANULOCYTES ABSOLUTE 0.23 10/3/uL (0.0-0.11); LYMPHOCYTES ABSOLUTE 1.12 10/3/uL (0.67-4.30); MANUAL DIFF NO %; MEAN CORPUS HGB CONC 33.7 g/dL (32.0-36.0); MEAN CORPUSCULAR HEMOGLOB 29.7 pg (26.0-34.0); MEAN CORPUSCULAR VOLUME 88.1 fL (80-100); MEAN PLATELET VOLUME 8.5 fL (9.2-13.0); MONOCYTES 4.2 %; MONOCYTES ABSOLUTE 0.67 10/3/uL (0.21-1.20); NEUTROPHILS 87.3 %; NEUTROPHILS ABSOLUTE 14.05 10/3/uL (2.02-8.40); PLATELET COUNT 346 10/3/uL (150-400); RED CELL COUNT 4.11 10/6/uL (4.0-5.6); WHITE BLOOD CELLS 16.1 10/3/uL (4.5-10.5)
[2017-01-05 06:22] LABS: CALCIUM, SERUM 8.8 MG/DL (8.5-10.4); CHLORIDE, SERUM 102 MMOL/L (96-112); CO2 (CARBON DIOXIDE) 25 MMOL/L (24-34); GFR AFRICAN AMERICAN 91 ML/MIN (>=60); GFR NON AFRICAN AMERICAN 79 ML/MIN (>=60); GLUCOSE, SERUM 132 MG/DL (60-99); POTASSIUM, SERUM 4.4 MMOL/L (3.5-5.3); SODIUM, SERUM 137 MMOL/L (135-148)
[2017-01-05 06:23] LABS: BUN (BLOOD UREA NITROGEN) 20 MG/DL (6-23)
[2017-01-06 06:37] LABS: BASOPHILS 0.1 %; BASOPHILS ABSOLUTE 0.01 10/3/uL (0.0-0.16); EOSINOPHILS 0.6 %; EOSINOPHILS ABSOLUTE 0.07 10/3/uL (0.0-0.53); HEMATOCRIT 35.5 % (36.0-48.0); HEMOGLOBIN 11.9 g/dL (12.0-16.0); IMMATURE GRANULOCYTES 1.8 %; LYMPHOCYTES 20.6 %; LYMPHOCYTES ABSOLUTE 2.23 10/3/uL (0.67-4.30); MEAN CORPUS HGB CONC 33.5 g/dL (32.0-36.0); MEAN CORPUSCULAR HEMOGLOB 30.1 pg (26.0-34.0); MEAN CORPUSCULAR VOLUME 89.6 fL (80-100); MEAN PLATELET VOLUME 8.3 fL (9.2-13.0); MONOCYTES 7.5 %; MONOCYTES ABSOLUTE 0.81 10/3/uL (0.21-1.20); NEUTROPHILS 69.4 %; PLATELET COUNT 319 10/3/uL (150-400); RBC DISTRIBUTION WIDTH 13.5 % (12.0-16.0); RED CELL COUNT 3.96 10/6/uL (4.0-5.6); WHITE BLOOD CELLS 10.8 10/3/uL (4.5-10.5)
[2017-01-06 06:38] LABS: MANUAL DIFF NO %
[2017-01-06 06:47] LABS: CALCIUM, SERUM 8.8 MG/DL (8.5-10.4); CHLORIDE, SERUM 105 MMOL/L (96-112); CO2 (CARBON DIOXIDE) 24 MMOL/L (24-34); CREATININE 0.82 MG/DL (0.55-1.02); GFR AFRICAN AMERICAN 102 ML/MIN (>=60); GFR NON AFRICAN AMERICAN 88 ML/MIN (>=60); POTASSIUM, SERUM 4.1 MMOL/L (3.5-5.3); SODIUM, SERUM 140 MMOL/L (135-148)
[2017-01-06 06:49] LABS: BUN (BLOOD UREA NITROGEN) 27 MG/DL (6-23); GLUCOSE, SERUM 100 MG/DL (60-99)
[2017-01-08 07:01] LABS: CALCIUM, SERUM 8.5 MG/DL (8.5-10.4); CHLORIDE, SERUM 105 MMOL/L (96-112); CO2 (CARBON DIOXIDE) 27 MMOL/L (24-34); CREATININE 0.87 MG/DL (0.55-1.02); GFR AFRICAN AMERICAN 95 ML/MIN (>=60); GFR NON AFRICAN AMERICAN 82 ML/MIN (>=60); POTASSIUM, SERUM 3.9 MMOL/L (3.5-5.3); SODIUM, SERUM 142 MMOL/L (135-148)
[2017-01-08 07:02] LABS: BUN (BLOOD UREA NITROGEN) 18 MG/DL (6-23); GLUCOSE, SERUM 131 MG/DL (60-99)
[2017-01-09] MEDS ORDERED: NEUR600 PO (10:37)
[2017-01-09] MEDS ORDERED: PROVHFA INH (10:38)
[2017-01-09] MEDS ORDERED: QUESLITE PO (10:38)
[2017-01-09] MEDS ORDERED: DSS PO (10:38)
[2017-01-09] MEDS ORDERED: PROMETRIUM200 MG PO (10:39)
[2017-01-09] MEDS ORDERED: FOLIC PO (10:39)
[2017-01-09] MEDS ORDERED: ANADS PO (10:40)
[2017-01-09] MEDS ORDERED: P20 PO (10:40)
[2017-01-09] MEDS ORDERED: SEPTRA DS1 TAB PO (10:41)
[2017-01-09] MEDS ORDERED: PCET PO (10:42)
[2017-01-09] MEDS ORDERED: ANOROELLIPTA INH (10:43)
== END 2017-01-09 12:34 | disposition home or self-care (01) | DRG 166 ==
LOC: 5SO 18:38 → SDC/OF 01-04 19:01 → 5NO 01-04 21:26
PROVIDERS: Hospitalist; Internal Medicine; Nurse Practitioner Family; Student in an Organized Health Care Education/Training Program; Thoracic Surgery (Cardiothoracic Vascular Surgery)
PROC: 0B948ZX Drainage of Right Upper Lobe Bronchus, Via Natural or Artificial Opening Endoscopic, Diagnostic (ICD-10-PCS; 2016-12-28)
PROC: 07B74ZX Excision of Thorax Lymphatic, Percutaneous Endoscopic Approach, Diagnostic (ICD-10-PCS; principal; 2016-12-28 09:54)
PROC: 0BBC8ZX Excision of Right Upper Lung Lobe, Via Natural or Artificial Opening Endoscopic, Diagnostic (ICD-10-PCS; 2016-12-28 09:54)
PROC: 0BBC4ZX Excision of Right Upper Lung Lobe, Percutaneous Endoscopic Approach, Diagnostic (ICD-10-PCS; 2017-01-04)
PROC: 3E0T3BZ Introduction of Anesthetic Agent into Peripheral Nerves and Plexi, Percutaneous Approach (ICD-10-PCS; 2017-01-04)
PROC: 07B74ZZ Excision of Thorax Lymphatic, Percutaneous Endoscopic Approach (ICD-10-PCS; 2017-01-04 18:30)
DX: J44.0 Chronic obstructive pulmonary disease with (acute) lower respiratory infection (principal); J96.01 Acute respiratory failure with hypoxia; J84.117 Desquamative interstitial pneumonia; B37.3 Candidiasis of vulva and vagina; E87.6 Hypokalemia; F17.210 Nicotine dependence, cigarettes, uncomplicated; J44.1 Chronic obstructive pulmonary disease with (acute) exacerbation; F41.9 Anxiety disorder, unspecified; M06.9 Rheumatoid arthritis, unspecified; N83.201 Unspecified ovarian cyst, right side; Z90.49 Acquired absence of other specified parts of digestive tract; Z80.1 Family history of malignant neoplasm of trachea, bronchus and lung; Z88.0 Allergy status to penicillin; Z88.8 Allergy status to other drugs, medicaments and biological substances
CPT/HCPCS: 36415; 71010; 71020; 71275; 74177; 76705; 80048; 80053; 80076; 81001; 83690; 83735; 83880; 84703; 85014; 85018; 85025; 85610; 85652; 86850; 86900; 86901; 87015; 87070; 87075; 87101; 87102; 87116; 87205; 88112; 88172; 88173; 88305; 88307; 88312; 88313; 88331; 88333; 88341; 88342; 88360; 89051; 90686; 93005; 94640; A9270-GY; C1725; J0690; J1170; J1885; J1940; J2250; J2270; J2405; J2710; J2795; J2920; J3010; Q9967

== ENCOUNTER → 2017-01-18 23:00 | Emergency (ER) | payer BC ==
[~2017-01-18 23:00] MED LIST changes: +ANADS PO; +ANOROELLIPTA INH; +DSS PO; +FOLIC PO; +NEUR600 PO; +P20 PO; +PCET PO; +PROMETRIUM200 MG PO; +PROVHFA INH; +QUESLITE PO; +SEPTRA DS1 TAB PO
[2017-01-18 23:43] LABS: BASOPHILS 0.1 %; BASOPHILS ABSOLUTE 0.01 10/3/uL (0.0-0.16); EOSINOPHILS ABSOLUTE 0.12 10/3/uL (0.0-0.53); HEMATOCRIT 37.9 % (36.0-48.0); HEMOGLOBIN 14.1 g/dL (12.0-16.0); IMMATURE GRANULOCYTES 1.8 %; IMMATURE GRANULOCYTES ABSOLUTE 0.21 10/3/uL (0.0-0.11); LYMPHOCYTES 33.7 %; LYMPHOCYTES ABSOLUTE 4.04 10/3/uL (0.67-4.30); MANUAL DIFF NO %; MEAN CORPUS HGB CONC 37.2 g/dL (32.0-36.0); MEAN CORPUSCULAR HEMOGLOB 33.1 pg (26.0-34.0); MEAN PLATELET VOLUME 8.3 fL (9.2-13.0); MONOCYTES 4.4 %; MONOCYTES ABSOLUTE 0.53 10/3/uL (0.21-1.20); NEUTROPHILS ABSOLUTE 7.08 10/3/uL (2.02-8.40); PLATELET COUNT 288 10/3/uL (150-400); RBC DISTRIBUTION WIDTH 14.2 % (12.0-16.0); RED CELL COUNT 4.26 10/6/uL (4.0-5.6)
[2017-01-18 23:56] LABS: CALCIUM, SERUM 8.9 MG/DL (8.5-10.4); CHLORIDE, SERUM 99 MMOL/L (96-112); CO2 (CARBON DIOXIDE) 28 MMOL/L (24-34); CREATININE 1.06 MG/DL (0.55-1.02); GFR AFRICAN AMERICAN 75 ML/MIN (>=60); GFR NON AFRICAN AMERICAN 65 ML/MIN (>=60); POTASSIUM, SERUM 3.9 MMOL/L (3.5-5.3); SGOT(AST) 21 U/L (5-40); SGPT(ALT) 53 U/L (5-65); SODIUM, SERUM 138 MMOL/L (135-148)
[2017-01-18 23:59] LABS: A/G RATIO 1.1 (0.7-1.9); ALBUMIN 4.1 G/DL (3.5-5.0); ALKALINE PHOSPHATASE 91 U/L (45-117); BUN (BLOOD UREA NITROGEN) 29 MG/DL (6-23); GLOBULIN 3.8 G/DL (2.5-4.1); GLUCOSE, SERUM 102 MG/DL (60-99); TOTAL BILIRUBIN 0.7 MG/DL (0-1.2); TOTAL PROTEIN 7.9 G/DL (6.0-8.5)
[2017-01-19] LABS: RBC MORPHOLOGY NORM (NORMAL)
== END | disposition left against medical advice (07) ==
LOC: ER 23:00
PROVIDERS: Emergency Medicine
DX: Z53.21 Procedure and treatment not carried out due to patient leaving prior to being seen by health care provider (principal)
CPT/HCPCS: 80053; 85025; 87040; 93005